=== PATIENT | male | born 1980 | race African-American/Black ===

== ENCOUNTER 2016-11-10 13:05 | Emergency (ER) | payer OTHER ==
[~2016-11-10] VITALS: Ht 175.3 cm; Wt 104.3 kg
[2016-11-10 13:12] VITALS: BP_SYST 139
[2016-11-10 14:42] VITALS: BP_SYST 139
== END 2016-11-10 14:42 | disposition home or self-care (01) ==
LOC: SED 13:05
DX: S93.401A Sprain of unspecified ligament of right ankle, initial encounter (principal); R03.0 Elevated blood-pressure reading, without diagnosis of hypertension; X58.XXXA Exposure to other specified factors, initial encounter; Y93.89 Activity, other specified; Y99.8 Other external cause status; Y92.89 Other specified places as the place of occurrence of the external cause
CPT/HCPCS: 99284

== ENCOUNTER 2016-11-17 12:02 | Emergency (ER) | payer OTHER ==
[~2016-11-17] VITALS: Ht 175.3 cm; Wt 104.3 kg
[2016-11-17 12:11] VITALS: BP_SYST 152
--- NOTE | 2016-11-17 12:11 | NUR ---
Pt to bed 8
--- NOTE | 2016-11-17 12:17 | NUR ---
Pt here for c/o right calf pain, lateral side. Pt has previous injury about 1 week ago to ankle, had a splint, was taken off due to swelling per pt. Swelling and redness noted to area.
[2016-11-17 12:39] LABS: BASOPHILS % (AUTO) 0.4 % (0.0-2.0); EOSINOPHILS # (AUTO) 0.1 K/uL (0.0-0.4); EOSINOPHILS % (AUTO) 1.6 % (0.0-4.0); HEMATOCRIT 40.1 % (36-54); HEMOGLOBIN 13.4 g/dL (14.0-18.0); LYMPHOCYTES # (AUTO) 2.1 K/uL (1.0-5.5); LYMPHOCYTES % (AUTO) 36.2 % (20.5-51.5); MEAN CORPUSCULAR HEMOGLOBIN 28 pg (27-31); MEAN CORPUSCULAR HGB CONC 33 % (32-36); MEAN CORPUSCULAR VOLUME 84 fL (79.0-98.0); MONOCYTES # (AUTO) 0.4 K/uL (0.0-1.0); MONOCYTES % (AUTO) 6.7 % (1.7-9.3); NEUTROPHILS # (AUTO) 3.3 K/uL (1.8-7.7); NEUTROPHILS % (AUTO) 55.1 % (40.0-70.0); PLATELET COUNT (AUTO) 341 K/uL (130-430); RED BLOOD CELL COUNT(AUTO) 4.79 MIL/uL (4.2-6.2); RED CELL DISTRIBUTION WIDTH 12.8 % (9.0-15.0); WHITE BLOOD COUNT (AUTO) 5.9 K/uL (4.8-10.8)
--- NOTE | 2016-11-17 12:40 | NUR ---
US tech at bedside.
[2016-11-17 12:46] LABS: CALCIUM 9.3 mg/dL (8.4-11.0); CREATININE 1.11 mg/dL (0.55-1.30); POTASSIUM 4.1 mmol/L (3.5-5.1)
[2016-11-17 12:49] LABS: PROTHROMBIN TIME 11.2 SECS (9.5-12.5)
[2016-11-17 12:51] LABS: ALBUMIN 3.8 g/dL (3.4-4.8); TOTAL PROTEIN, SERUM 7.6 g/dL (6.4-8.3)
--- NOTE | 2016-11-17 13:00 | NUR ---
X ray at bedside.
[2016-11-17 14:20] VITALS: BP_SYST 140
--- NOTE | 2016-11-17 14:20 | NUR ---
Patient given written and verbal discharge instructions and verbalizes understanding. ER MD discussed with patient the results and treatment provided. Patient in stable condition. ID arm band removed. Rx of CLindamycin given. Opportunity for questions provided and answered.
== END 2016-11-17 14:20 | disposition home or self-care (01) ==
LOC: SED 12:14
DX: L03.115 Cellulitis of right lower limb (principal); R03.0 Elevated blood-pressure reading, without diagnosis of hypertension
CPT/HCPCS: 36415; 73564; 73590-TC; 80053; 85025; 85610-TC; 85730-TC; 93971; 99285